=== PATIENT | male | born 1940 | race Caucasian/White ===

== ENCOUNTER 2023-07-31 17:45 | Inpatient (IN) | payer MEDICARE, OTHER ==
[~2023-07-31] VITALS: Ht 172.7 cm; Wt 109.3 kg
[2023-07-31] VITALS (13 sets, daily range): BP systolic 63–143; BP diastolic 39–84; TEMP 98.6; O2SAT 88–100
[2023-07-31 18:01] LABS: ABG BASE EXCESS 2.3 (-2.0-2.0); ABG O2 SATURATION 92.4 % (95.0-99.0); ABG PARTIAL PRESSURE O2 59.6 mmHg (75.0-100.0); ABG STANDARD HCO3 26.4 MMOL/L. (22.0-26.0); ABG TOTAL CO2 25.9 MMOL/L (23.0-31.0)
[2023-07-31 18:16] LABS: HEMATOCRIT 31.2 % (42.0-52.0); MEAN CORPUSCULAR HEMOGLOBIN 35.3 pg (27.0-33.0); MEAN CORPUSCULAR HGB CONC 32.1 g/dl (32.0-36.5); MEAN CORPUSCULAR VOLUME 110.2 fl (80.0-96.0); PLATELET COUNT, AUTOMATED 135 10^3/uL (150-450); RED BLOOD COUNT 2.83 10^6/uL (4.30-6.10); WHITE BLOOD COUNT 2.2 10^3/uL (4.0-10.0)
[2023-07-31 18:32] LABS: INR 1.23; PROTHROMBIN TIME 15.1 SECONDS (12.5-14.5)
[2023-07-31] MEDS: ACETAMINOPHEN 500 MG TAB PO ONE (18:36)
[2023-07-31] MEDS: NS IV ONE (18:37)
[2023-07-31] MEDS: cefTRIAXone SOD 2 GM in D5W MINI-BAG PLUS 50 ML IV ONE (18:37)
[2023-07-31 18:45] LABS: ALBUMIN 3.5 G/DL (3.2-5.2); BILIRUBIN,DIRECT 0.5 MG/DL (<0.4); BILIRUBIN,TOTAL 1.3 MG/DL (0.3-1.2); CALCIUM LEVEL 8.9 MG/DL (8.3-10.6); CREATININE FOR GFR 1.24 MG/DL (0.70-1.30); GLOMERULAR FILTRATION RATE 59.1 (>35); POTASSIUM SERUM 4.8 MMOL/L (3.5-5.1); TOTAL PROTEIN 5.9 G/DL (5.7-8.2)
[2023-07-31 18:46] LABS: THYROID STIMULATING HORMONE 1.465 uIU/ML (0.55-4.78); THYROXINE (T4) 4.2 UG/DL (4.5-10.9)
[2023-07-31] MEDS: IPRATROPIUM 0.5MG/ALBUTEROL 2.5MG INH SOL UD 3ML (DUONEB) NEB ONE (18:52)
[2023-07-31 18:54] LABS: ATYPICAL LYMPH 10 % (0-5); EOSINOPHILS 2 % (0-3); LYMPHOCYTES 37 % (16-44); METAMYELOCYTES 1 % (0-0); MONOCYTES 4 % (0-5); MYELOCYTES 1 % (0-0); NEUTROPHILS 41 % (28-66)
[2023-07-31 18:55] LABS: PLATELET ESTIMATE NORMAL (NORMAL)
[2023-07-31] MEDS ORDERED: ENOXAPARIN 40MG/0.4ML SYRINGE (J1650 PER 10MG) SC SCH (19:50)
[2023-07-31] MEDS: VANCOMYCIN HCL 1,000 MG, VIAL MATE ADAPTER 1 EACH in D5W 250 ML IV STA (20:03)
[2023-07-31] MEDS: PIPERACILLIN/TAZOBACTAM SOD 4.5 GM in D5W MINI-BAG PLUS 50 ML IV ONE (20:03)
[2023-07-31] MEDS ORDERED: ACETAMINOPHEN *IV* 1,000 MG in IV 1 EA IV PRN (21:00)
[2023-07-31 21:14] LABS: ABG BASE EXCESS -1.7 (-2.0-2.0); ABG HCO3 21.8 MMOL/L (22.0-26.0); ABG O2 SATURATION 92.6 % (95.0-99.0); ABG PARTIAL PRESSURE CO2 32.2 mmHg (35.0-45.0); ABG PARTIAL PRESSURE O2 64.6 mmHg (75.0-100.0); ABG TOTAL CO2 22.8 MMOL/L (23.0-31.0); ABG pH (ARTERIAL) 7.448 UNITS (7.350-7.450)
[2023-07-31] MEDS ORDERED: GLUCOSE 4 GM CHEW PO PRN (21:20)
[2023-07-31] MEDS ORDERED: GLUCAGON INJ 1MG VIAL SC PRN (21:20)
[2023-07-31] MEDS ORDERED: DEXTROSE 50% 50ML SYRINGE IV PRN (21:20)
[2023-07-31] MEDS: NOREPINEPHRINE 4MG IN D5 250ML 4 MG in IV 1 EA IV SCH (21:51)
[2023-07-31] MEDS: IPRATROPIUM 0.5MG/ALBUTEROL 2.5MG INH SOL UD 3ML (DUONEB) NEB PRN (22:05)
[2023-07-31] MEDS: HYDROCORTISONE 100MG/2ML VIAL IV ONE (22:15)
[2023-07-31] MEDS ORDERED: VASOPRESSIN INJ 20 UNITS in NS 499 ML IV SCH ×2 (22:15→22:30)
[2023-07-31] MEDS: NS 1,000 ML IV SCH (22:17)
[2023-07-31] MEDS: VASOPRESSIN INJ 20 UNITS in NS 499 ML IV SCH (22:26)
[2023-07-31] MEDS: REMDESIVIR 200 MG in NS 250 ML IV ONE (23:32)
[2023-08-01] VITALS (82 sets, daily range): BP systolic 83–149; BP diastolic 42–85; TEMP 96.5–99.6; O2SAT 80–100
[2023-08-01] MEDS: INSULIN LISPRO (NovoLOG) PER UNIT SC SCH (00:40)
[2023-08-01] MEDS: PIPERACILLIN/TAZOBACTAM SOD 4.5 GM in D5W MINI-BAG PLUS 50 ML IV SCH ×2 (02:07→09:31)
[2023-08-01] MEDS: VANCOMYCIN HCL 1,000 MG, VIAL MATE ADAPTER 1 EACH in D5W 250 ML IV ONE (03:22)
[2023-08-01] MEDS: AZITHROMYCIN INJ 500 MG, VIAL MATE ADAPTER 1 EACH in NS 250 ML IV SCH (04:51)
[2023-08-01 05:05] LABS: VENOUS BASE EXCESS -11.5 (-2.0-2.0); VENOUS HCO3 15.6 MMOL/L (23.0-27.0); VENOUS O2 SATURATION 89.7 % (60.0-80.0); VENOUS PARTIAL PRESSURE CO2 40.3 mmHg (38.0-50.0); VENOUS PARTIAL PRESSURE O2 70.4 mmHg (30.0-50.0); VENOUS PH 7.206 UNITS (7.330-7.430); VENOUS STANDARD HCO3 15.1 MMOL/L; VENOUS TOTAL CO2 16.8 MMOL/L (24.0-28.0)
[2023-08-01 05:11] LABS: HEMATOCRIT 25.1 % (42.0-52.0); HEMOGLOBIN 8.1 g/dl (13.5-17.5); MEAN CORPUSCULAR HEMOGLOBIN 36.2 pg (27.0-33.0); MEAN CORPUSCULAR HGB CONC 32.3 g/dl (32.0-36.5); MEAN CORPUSCULAR VOLUME 112.1 fl (80.0-96.0); PLATELET COUNT, AUTOMATED 142 10^3/uL (150-450); RED BLOOD COUNT 2.24 10^6/uL (4.30-6.10); WHITE BLOOD COUNT 1.9 10^3/uL (4.0-10.0)
[2023-08-01 05:40] LABS: FERRITIN 1438.1 NG/ML (10.5-307.3)
[2023-08-01 05:45] LABS: PROCALCITONIN 38.3 ng/ml
[2023-08-01 06:00] LABS: ALBUMIN 2.4 G/DL (3.2-5.2); BILIRUBIN,TOTAL 0.8 MG/DL (0.3-1.2); CALCIUM LEVEL 7.7 MG/DL (8.3-10.6); CREATININE FOR GFR 2.08 MG/DL (0.70-1.30); GLOMERULAR FILTRATION RATE 32.5 (>35); MAGNESIUM LEVEL 1.4 MG/DL (1.8-2.4); POTASSIUM SERUM 4.5 MMOL/L (3.5-5.1); TOTAL PROTEIN 4.6 G/DL (5.7-8.2)
[2023-08-01] MEDS: MAG SULF 1GM/100ML (MAG RUN) 1 GM in IV 1 EA IV SCH (06:31)
[2023-08-01] MEDS ORDERED: ELIQ2.5T PO (06:33)
[2023-08-01] MEDS ORDERED: PRED10TA2 PO (06:33)
[2023-08-01] MEDS ORDERED: OLAN2.5T25 PO (06:33)
[2023-08-01] MEDS ORDERED: DEXA4TA PO (06:33)
[2023-08-01] MEDS ORDERED: ATOR1TAB19 PO (06:39)
[2023-08-01] MEDS ORDERED: ACET-897 PO ×2 (06:39)
[2023-08-01] MEDS ORDERED: [UNRECOGNIZED DRUG - CODE] IV (06:39)
[2023-08-01] MEDS ORDERED: MAGN400T35 PO (06:39)
[2023-08-01] MEDS ORDERED: RISATAB3 PO (06:39)
[2023-08-01] MEDS ORDERED: PROM25TA12 PO (06:39)
[2023-08-01] MEDS ORDERED: CVS1CAP PO (06:39)
[2023-08-01] MEDS ORDERED: CYAN100049 PO (06:39)
[2023-08-01] MEDS ORDERED: MULT-40 PO (06:39)
[2023-08-01] MEDS ORDERED: ONDA-84 PO (06:39)
[2023-08-01] MEDS ORDERED: MELO15TA28 PO (06:39)
[2023-08-01] MEDS ORDERED: HOME MED LIST COMPLETE! XX SCH (06:40)
[2023-08-01] MEDS: HEPARIN SOD (PORCINE) 5000UNITS/ML 1ML VIAL/SYRINGE SQ SCH (06:43)
[2023-08-01] MEDS: dexAMETHasone 20MG/5ML VIAL IV SCH (08:51)
[2023-08-01] MEDS: PANTOPRAZOLE 40MG VIAL IV SCH (08:51)
[2023-08-01] MEDS: ONDANSETRON 4MG 2ML VIAL IV ONE (08:55)
[2023-08-01] MEDS ORDERED: ENOXAPARIN 40MG/0.4ML SYRINGE (J1650 PER 10MG) SC SCH (09:00)
[2023-08-01] MEDS: APIXABAN 2.5 MG TAB (ELIQUIS) PO SCH (09:30)
[2023-08-01] MEDS: NS 500 ML IV ONE ×2 (09:30→14:45)
[2023-08-01] MEDS: NS 1,000 ML IV STA (10:15)
[2023-08-01 14:32] LABS: CALCIUM LEVEL 7.4 MG/DL (8.3-10.6); CREATININE FOR GFR 2.08 MG/DL (0.70-1.30); GLOMERULAR FILTRATION RATE 32.5 (>35); POTASSIUM SERUM 4.9 MMOL/L (3.5-5.1)
[2023-08-01] MEDS ORDERED: FUROSEMIDE 100MG/10ML VIAL As Ordered ONE (15:28)
[2023-08-01] MEDS ORDERED: FUROSEMIDE 20MG/2ML VIAL As Ordered ONE (15:28)
[2023-08-01] MEDS: FUROSEMIDE 100MG/10ML VIAL IV ONE (16:10)
[2023-08-01] MEDS ORDERED: VANCOMYCIN HCL 750 MG, VIAL MATE ADAPTER 1 EACH in D5W 250 ML IV SCH (18:00)
[2023-08-01 18:49] LABS: CALCIUM LEVEL 7.7 MG/DL (8.3-10.6); CREATININE FOR GFR 2.03 MG/DL (0.70-1.30); GLOMERULAR FILTRATION RATE 33.5 (>35); MAGNESIUM LEVEL 1.9 MG/DL (1.8-2.4)
[2023-08-01] MEDS ORDERED: VANCOMYCIN HCL 500 MG in D5W MINI-BAG PLUS 100 ML IV SCH (19:00)
[2023-08-01] MEDS: OLANZapine 2.5MG TABLET PO SCH (20:03)
[2023-08-01] MEDS: SODIUM BICARBONATE 100 MEQ in D5W 1,000 ML IV SCH (20:03)
[2023-08-01] MEDS: REMDESIVIR 100 MG in NS 250 ML IV SCH (20:04)
[2023-08-02] VITALS (14 sets, daily range): BP systolic 92–132; BP diastolic 50–71; TEMP 97–98.2; O2SAT 96–99
[2023-08-02 05:27] LABS: HEMATOCRIT 21.2 % (42.0-52.0); MEAN CORPUSCULAR HEMOGLOBIN 34.5 pg (27.0-33.0); MEAN CORPUSCULAR HGB CONC 31.6 g/dl (32.0-36.5); MEAN CORPUSCULAR VOLUME 109.3 fl (80.0-96.0); RED BLOOD COUNT 1.94 10^6/uL (4.30-6.10); WHITE BLOOD COUNT 1.3 10^3/uL (4.0-10.0)
[2023-08-02 05:32] LABS: PLATELET COUNT, AUTOMATED 89 10^3/uL (150-450)
[2023-08-02 05:34] LABS: HEMOGLOBIN 6.7 g/dl (13.5-17.5)
[2023-08-02 05:50] LABS: ABG BASE EXCESS -0.7 (-2.0-2.0); ABG HCO3 23.8 MMOL/L (22.0-26.0); ABG O2 SATURATION 95.2 % (95.0-99.0); ABG PARTIAL PRESSURE O2 78.3 mmHg (75.0-100.0); ABG STANDARD HCO3 23.9 MMOL/L. (22.0-26.0); ABG TOTAL CO2 24.9 MMOL/L (23.0-31.0); ABG pH (ARTERIAL) 7.414 UNITS (7.350-7.450)
[2023-08-02 05:57] LABS: ALBUMIN 2.2 G/DL (3.2-5.2); BILIRUBIN,TOTAL 0.7 MG/DL (0.3-1.2); CALCIUM LEVEL 7.4 MG/DL (8.3-10.6); CREATININE FOR GFR 2.11 MG/DL (0.70-1.30); MAGNESIUM LEVEL 1.8 MG/DL (1.8-2.4); POTASSIUM SERUM 3.6 MMOL/L (3.5-5.1); TOTAL PROTEIN 4.6 G/DL (5.7-8.2)
[2023-08-02 07:24] LABS: ANISOCYTOSIS 2+; EOSINOPHILS 1 % (0-3); LYMPHOCYTES 14 % (16-44); METAMYELOCYTES 6 % (0-0); MONOCYTES 7 % (0-5); MYELOCYTES 4 % (0-0); NEUTROPHILS 65 % (28-66); PLATELET ESTIMATE DECREASED (NORMAL)
[2023-08-02 07:25] LABS: SCHISTOCYTES 1+
[2023-08-02] MEDS: NS 1,000 ML IV SCH (08:21)
[2023-08-02 09:24] LABS: EOS % 0.7 % (0.0-3.0); HEMATOCRIT 22.3 % (42.0-52.0); HEMOGLOBIN 7.3 g/dl (13.5-17.5); LYMPH # 0.1 10^3/uL (1.5-5.0); MEAN CORPUSCULAR HEMOGLOBIN 35.3 pg (27.0-33.0); MEAN CORPUSCULAR HGB CONC 32.7 g/dl (32.0-36.5); MEAN CORPUSCULAR VOLUME 107.7 fl (80.0-96.0); MONO % 2.8 % (2.0-8.0); NEUTROPHILS # 1.3 10^3/uL (1.5-8.5); NEUTROPHILS % 86.8 % (36.0-66.0); RED BLOOD COUNT 2.07 10^6/uL (4.30-6.10); WHITE BLOOD COUNT 1.4 10^3/uL (4.0-10.0)
[2023-08-02 09:31] LABS: PLATELET COUNT, AUTOMATED 92 10^3/uL (150-450)
[2023-08-02] MEDS: SODIUM CHLORIDE 0.9% INJ 10 ML SYR IV SCH (09:58)
[2023-08-03 04:36] VITALS: BP 139/81; TEMP 97; O2SAT 97
[2023-08-03 05:48] LABS: BASO % 0.4 % (0.0-1.0); EOS % 0.4 % (0.0-3.0); LYMPH # 0.3 10^3/uL (1.5-5.0); MEAN CORPUSCULAR HEMOGLOBIN 34.9 pg (27.0-33.0); MEAN CORPUSCULAR HGB CONC 32.4 g/dl (32.0-36.5); MEAN CORPUSCULAR VOLUME 107.7 fl (80.0-96.0); MONO # 0.1 10^3/uL (0.0-0.8); MONO % 2.1 % (2.0-8.0); NEUTROPHILS % 84.3 % (36.0-66.0); RED BLOOD COUNT 1.95 10^6/uL (4.30-6.10); WHITE BLOOD COUNT 2.4 10^3/uL (4.0-10.0)
[2023-08-03 05:56] LABS: HEMOGLOBIN 6.8 g/dl (13.5-17.5); PLATELET COUNT, AUTOMATED 61 10^3/uL (150-450)
[2023-08-03 06:17] LABS: CALCIUM LEVEL 7.6 MG/DL (8.3-10.6); CREATININE FOR GFR 1.52 MG/DL (0.70-1.30); GLOMERULAR FILTRATION RATE 46.7 (>35); MAGNESIUM LEVEL 1.9 MG/DL (1.8-2.4); POTASSIUM SERUM 3.7 MMOL/L (3.5-5.1)
[2023-08-03 10:09] LABS: HEMATOCRIT 22.2 % (42.0-52.0); HEMOGLOBIN 7.3 g/dl (13.5-17.5); MEAN CORPUSCULAR HEMOGLOBIN 36.5 pg (27.0-33.0); MEAN CORPUSCULAR HGB CONC 32.9 g/dl (32.0-36.5)
[2023-08-03 10:43] LABS: PLATELET COUNT, AUTOMATED 69 10^3/uL (150-450)
[2023-08-03 12:51] VITALS: BP 131/60; TEMP 97.2; O2SAT 99
[2023-08-03] MEDS ORDERED: AMOX875T2 PO (12:58)
[2023-08-03] MEDS ORDERED: DEXA6TAB PO (14:26)
[2023-08-03] MEDS ORDERED: AUGMENTIN 875 MG TAB PO SCH (18:00)
== END 2023-08-03 13:45 | disposition home or self-care (01) | DRG 871 ==
LOC: M ED 17:45 → M ED INP 19:46 → M ICU 21:30 → M MS5PR 08-02 17:50
PROVIDERS: ADMIT Preventive Medicine Undersea and Hyperbaric Medicine; ATTEND Internal Medicine
DX: A41.9 Sepsis, unspecified organism (principal); R65.21 Severe sepsis with septic shock; U07.1 COVID-19; J96.01 Acute respiratory failure with hypoxia; J12.82 Pneumonia due to coronavirus disease 2019; D61.810 Antineoplastic chemotherapy induced pancytopenia; I48.20 Chronic atrial fibrillation, unspecified; N39.0 Urinary tract infection, site not specified; N17.9 Acute kidney failure, unspecified; C67.9 Malignant neoplasm of bladder, unspecified; I12.9 Hypertensive chronic kidney disease with stage 1 through stage 4 chronic kidney disease, or unspecified chronic kidney disease; B96.29 Other Escherichia coli [E. coli] as the cause of diseases classified elsewhere; E11.9 Type 2 diabetes mellitus without complications; D64.9 Anemia, unspecified; N18.9 Chronic kidney disease, unspecified; Z88.8 Allergy status to other drugs, medicaments and biological substances; Z79.899 Other long term (current) drug therapy; E66.9 Obesity, unspecified; Z79.01 Long term (current) use of anticoagulants; Z66 Do not resuscitate